=== PATIENT | female | born 1995 | race Hispanic/Latino ===

== ENCOUNTER 2018-10-23 14:30 | Day surgery (SDC) | payer BC ==
[2018-10-22 13:35] VITALS: BMI 25.7
[~2018-10-23 14:30] MED LIST: Lidocaine 1% PF 5 ML VIAL ONE; PROPOFOL 200 MG/20 ML VIAL ONE
[2018-10-23 16:21] LABS: #Lymphocytes 2.3 thou/uL (1.20-3.40); #Monocytes 0.4 thou/uL (0.11-0.59); #Neutrophils 4.6 thou/uL (1.40-6.50); %Basophils 0.1 % (0.0-1.0); %Eosinophils 0.6 % (0.0-10.0); %Lymphocytes 31.1 % (21.0-51.0); %Monocytes 5.2 % (0.0-10.0); Hemoglobin 12.9 g/dL (12.0-16.0); Mean Corpuscular HGB CONC 34.2 g/dL (32.0-36.0); Mean Corpuscular Hemoglobin 30.2 pg (27.0-31.0); Mean Corpuscular Volume 88.2 fL (78.0-98.0); Mean Platelet Volume 6.9 fL (7.4-10.4); Platelet Count 337 thou/uL (130-400); RBC Distribution Width 11.8 % (11.5-14.5); Red Blood Cell (RBC) Count 4.26 mill/uL (4.20-5.40); White Blood Cell (WBC) Count 7.3 thou/uL (4.8-10.8)
[2018-10-23] MEDS ORDERED: Betamet Acet/Betamet Na Ph 30 MG/5 ML VIAL ONE (19:00)
[2018-10-23] MEDS ORDERED: Bupivacaine PF 0.5% 30 ML VIAL ONE (19:00)
[2018-10-23] MEDS ORDERED: Sodium Chloride 0.9% 10 ML ONE (19:00)
[2018-10-23] MEDS ORDERED: Bacitracin Zinc Ointment 30 gm TUBE ONE (19:00)
[2018-10-23] MEDS ORDERED: Midazolam HCl 2 mg/2 ml Vial ONE (19:24)
[2018-10-23] MEDS ORDERED: Fentanyl 100 MCG/2 ML VIAL ONE ×2 (19:24→21:07)
[2018-10-23] MEDS ORDERED: Ketorolac Tromethamine 30 MG/ML VIAL ONE (20:44)
--- NOTE | 2018-10-26 11:29 | OP ---
DATE OF PROCEDURE: 10/23/2018 PREOPERATIVE DIAGNOSES: 1. Left first dorsal compartment tenosynovitis. 2. Left first dorsal compartment tendon (extensor pollicis brevis) ganglion, tendon sheath. FINDINGS: Abductor pollicis longus with ganglion, tendon sheath, 7 mm in diameter without erosion or thinning of the tendon. PROCEDURES PERFORMED: 1. Excision of ganglion, tendon sheath, abductor pollicis longus. 2. Release, first dorsal compartment include release of a separate compartment of extensor pollicis brevis. COMPLICATIONS: None. TOURNIQUET TIME: 11 minutes. ESTIMATED BLOOD LOSS: Less than 10 mL. INJECTABLE: Yes, en-incisional, two injections; 1. Celestone 3 mL, drip technique into the tendon after the releases. 2. Once we finished the releases and removed the mass, released the tourniquet and obtained hemostasis. Given the Celestone and the total of 10 mL of 0.5% Marcaine without epinephrine around the wound, the wound proper itself and then placed a soft dressing on the patient with the thumb abducted approximately 45 degrees and there was no evidence of anesthetic or operative complication. Job ID: [id number]
== END 2018-10-23 22:04 | disposition home or self-care (01) ==
LOC: SDC 14:30
PROVIDERS: ATTEND Orthopaedic Surgery Hand Surgery
PROC: 0LB60ZZ Excision of Left Lower Arm and Wrist Tendon, Open Approach (ICD-10-PCS; principal; 2018-10-23)
PROC: 0LN60ZZ Release Left Lower Arm and Wrist Tendon, Open Approach (ICD-10-PCS; principal; 2018-10-23)
DX: M65.4 Radial styloid tenosynovitis [de Quervain] (principal); M67.432 Ganglion, left wrist; Z88.2 Allergy status to sulfonamides
CPT/HCPCS: 84702; 85025; 85652; 88304; J0702; J1885; J2001; J2250; J2704; J3010; J3490; S0020